=== PATIENT | female | born 1945 | race Two or more races ===

== ENCOUNTER 2018-09-29 21:16 | Emergency (ER) | payer OTHER ==
[2018-09-29 21:26] VITALS: BP 153/91; PULSE 107; TEMP 97.6; BMI 32.3
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
[2018-09-29] MEDS ORDERED: IBUPROFEN 400 MG TABLET (FP) PO ONE ×2 (23:44→23:47)
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
== END 2018-09-30 00:35 | disposition home or self-care (01) ==
LOC: JER 21:16 → JERFT 21:16 → JER 09-30 00:35
PROC: 2W3QX1Z Immobilization of Right Lower Leg using Splint (ICD-10-PCS; principal; 2018-09-29)
DX: S87.81XA Crushing injury of right lower leg, initial encounter (principal); S92.341A Displaced fracture of fourth metatarsal bone, right foot, initial encounter for closed fracture; V03.10XA Pedestrian on foot injured in collision with car, pick-up truck or van in traffic accident, initial encounter; Y92.414 Local residential or business street as the place of occurrence of the external cause; Y93.89 Activity, other specified; Y99.8 Other external cause status; I10 Essential (primary) hypertension; E78.00 Pure hypercholesterolemia, unspecified; E03.9 Hypothyroidism, unspecified
CPT/HCPCS: 73590-TC-RT-FY; 73610-TC-RT-FY; 73630-TC-RT-FY; 93971-TC; 99282-25

== ENCOUNTER 2019-03-17 14:40 | Emergency (ER) | payer OTHER | END 2019-03-17 15:14 | disposition home or self-care (01) | LOC: JER 14:40 ==